=== PATIENT | female | born 1990 | race Caucasian/White ===

== ENCOUNTER 2016-11-08 23:43 | Emergency (ER) | payer BC, MEDICARE ==
[~2016-11-08] VITALS: Ht 162.6 cm; Wt 136.1 kg
[~2016-11-08 23:43] MED LIST: DIVA500T2 PO; LORA1TAB PO
[2016-11-09] MEDS ORDERED: IV NORMAL SALINE 1,000ML 1,000 ML IV SCH (01:00)
[2016-11-09] MEDS ORDERED: ONDANSETRON PF 4 MG/2 ML VIAL. IV ONE (01:00)
[2016-11-09] MEDS ORDERED: MORPHINE SULFATE 4 MG/ML DISP.SYRIN. IV/SQ PRN (01:00)
[2016-11-09 01:44] LABS: BILIRUBIN,URINE NEG (NEG); CLARITY,URINE CLEAR; COLOR,URINE YELLOW; GLUCOSE,URINE NEG (NEG); NITRITE,URINE NEG (NEG); RBC,URINE OCC /HPF (0-2); UROBILINOGEN,URINE 0.2 mg/dL (0.2 mg/dL)
[2016-11-09 01:45] LABS: BACTERIA,URINE FEW /HPF (0-FEW); SQUAMOUS EPITHELIAL CELL,UR MOD /LPF; U PREG PATIENT NEGATIVE (NEG); WBC,URINE OCC /HPF (0-4)
[2016-11-09 02:19] LABS: ALBUMIN 3.3 g/dL (3.4-5.0); ALBUMIN/GLOBULIN RATIO 0.9 (1.0-1.7); CALCIUM 8.8 mg/dL (8.5-10.1); CREATININE 0.8 mg/dL (0.6-1.0); GFR 85.4; POTASSIUM 3.5 mmol/L (3.5-5.1); TOTAL BILIRUBIN 0.2 mg/dL (0.2-1.0); TOTAL PROTEIN 7.1 g/dL (6.4-8.2)
[2016-11-09 02:28] VITALS: BP 149/91
--- NOTE | 2016-11-09 02:47 | RAD ---
Pelvic ultrasound HISTORY: Right pelvic pain, history of polycystic ovarian syndrome. TECHNIQUE: Transabdominal and transvaginal transducer with grayscale and duplex Doppler sonography were utilized. FINDINGS: Transabdominal imaging demonstrates anteverted uterus measuring 6.9 x 3.1 x 4.6 cm. Endometrium and ovaries poorly visualized transabdominal. Transvaginal imaging demonstrates left ovary measuring 1.8 x 3.1 x 1.7 cm, right ovary measuring 2.0 x 2.6 x 2.1 cm. Symmetric intact bilateral ovarian blood flow. Bowel gas shadowing limits visualization segments of the right ovary. Less than 10 subcentimeter follicles are present within each ovary. No pelvic fluid documented. Anteverted uterus measures 7.1 x 3.9 x 3.6 cm. Endometrium thickness 11 mm. IMPRESSION: Normal exam. Electronically signed by: Indra Horne MD (11/09/2016 2:44 AM) [facility]
[2016-11-09] MEDS ORDERED: IBUP600T16 PO (02:54)
[2016-11-09] MEDS ORDERED: HYDR-971 PO (02:54)
--- NOTE | 2016-11-09 02:54 | PHYS DOC ---
Past History Past Medical History: Ovarian Cyst Past Surgical History: No Surgical History Additional Smoking Information: 1 pack over a year Alcohol Use: Occasionally Drug Use: None Adult General Chief Complaint Chief Complaint: PELVIC PAIN HPI HPI Patient is a 26 year old female who presents with right-sided pelvic pain. Patient states that she has been having pain for several days, however over the past 2-3 days she has been having worsening symptoms. Patient currently rates the pain as 9.5 out of 10. Patient states that the pain is sharp and located in her right pelvis. Patient states she has history of polycystic ovarian syndrome and has had similar episodes of pain attributed to this. Patient denies any associated nausea, vomiting, fevers, vaginal bleeding, or abnormal discharge. Patient took Tylenol for her symptoms with minimal relief. Patient denies radiation of pain at this time. Review of Systems Review of Systems Constitutional: Denies fever or chills [] Eyes: Denies change in visual acuity, redness, or eye pain [] HENT: Denies nasal congestion or sore throat [] Respiratory: Denies cough or shortness of breath [] Cardiovascular: Denies chest pain or edema [] GI: Denies abdominal pain, nausea, vomiting, bloody stools or diarrhea [] : Pelvic pain [] Musculoskeletal: Denies back pain or joint pain [] Integument: Denies rash or skin lesions [] Neurologic: Denies headache, focal weakness or sensory changes [] Current Medications Current Medications Current Medications Medications (Trade) Dose Ordered Sig/Juan Start Time Stop Time Status Last Admin Dose Admin Morphine Sulfate (Morphine 4mg Syringe) 4 mg PRN Q15MIN PRN 11/09/16 01:00 11/10/16 00:59 11/09/16 02:04 4 MG Ondansetron HCl (Zofran) 4 mg 1X ONCE 11/09/16 01:00 11/09/16 01:11 DC 11/09/16 02:03 4 MG Sodium Chloride 1,000 ml @ 1,000 mls/hr Q1H 11/09/16 01:00 11/09/16 01:59 DC 11/09/16 02:34 1,000 MLS/HR Allergies Allergies Allergies Coded Allergies Type Severity Reaction Last Updated Verified Sulfa (Sulfonamide Antibiotics) Allergy Intermediate rash 01/11/14 Yes Physical Exam Physical Exam Constitutional: Alert, obese, afebrile, appears in mild to moderate discomfort. [] HENT: Normocephalic, atraumatic, bilateral external ears normal, oropharynx moist, no oral exudates, nose normal. [] Eyes: PERRLA, EOMI, conjunctiva normal, no discharge. [] Neck: Normal range of motion, no tenderness, supple, no stridor. [] Cardiovascular:Heart rate regular rhythm, no murmur [] Lungs & Thorax: Bilateral breath sounds clear to auscultation [] Abdomen: Bowel sounds normal, soft, no tenderness, no masses, no pulsatile masses. [] Skin: Warm, dry, no erythema, no rash. [] Back: No tenderness, no CVA tenderness. [] Extremities: No tenderness, no cyanosis, no clubbing, ROM intact, no edema. [] Neurologic: Alert and oriented X 3, normal motor function, normal sensory function, no focal deficits noted. [] Current Patient Data Vital Signs Vital Signs Date Time Temp Pulse Resp B/P (MAP) Pulse Ox O2 Delivery O2 Flow Rate FiO2 11/09/16 02:04 24 11/09/16 00:34 97.6 102 96 Room Air Lab Results Laboratory Tests Test 11/09/16 00:59 11/09/16 01:21 Urine Collection Type Unknown Urine Color Yellow Urine Clarity Clear Urine pH 5.5 Urine Specific [place] 1.025 Urine Protein Neg (NEG-TRACE) Urine Glucose (UA) Neg mg/dL (NEG) Urine Ketones (Stick) Trace mg/dL (NEG) Urine Blood Trace (NEG) Urine Nitrite Neg (NEG) Urine Bilirubin Neg (NEG) Urine Urobilinogen Dipstick 0.2 mg/dL (0.2 mg/dL) Urine Leukocyte Esterase Neg (NEG) Urine RBC Occ /HPF (0-2) Urine WBC Occ /HPF (0-4) Urine Squamous Epithelial Cells Mod /LPF Urine Bacteria Few /HPF (0-FEW) Urine Test Negative (NEG) Sodium Level 142 mmol/L (136-145) Potassium Level 3.5 mmol/L (3.5-5.1) Chloride Level 107 mmol/L (98-107) Carbon Dioxide Level 25 mmol/L (21-32) Anion Gap 10 (6-14) Blood Urea Nitrogen 21 mg/dL (7-20) H Creatinine 0.8 mg/dL (0.6-1.0) Estimated GFR (Cockcroft-Gault) 85.4 BUN/Creatinine Ratio 26 (6-20) H Glucose Level 93 mg/dL (70-99) Calcium Level 8.8 mg/dL (8.5-10.1) Total Bilirubin 0.2 mg/dL (0.2-1.0) Aspartate Amino Transferase (AST) 13 U/L (15-37) L Alanine Aminotransferase (ALT) 19 U/L (14-59) Alkaline Phosphatase 48 U/L (46-116) Total Protein 7.1 g/dL (6.4-8.2) Albumin 3.3 g/dL (3.4-5.0) L Albumin/Globulin Ratio 0.9 (1.0-1.7) L Lipase 218 U/L (73-393) EKG EKG Not performed [] Radiology/Procedures Radiology/Procedures [address] [id number] IMAGING REPORT Signed PATIENT: TRUDI JALLOH ACCOUNT: [id number] : 1990 LOCATION: ER AGE: 26 SEX: F EXAM STATUS: REG ER ORD. PHYSICIAN: CHINO MALDONADO MD REASON: right pelvic pain, hx of PCOS, r/o ovarian torsion PROCEDURE: US PELVIS W/TV Pelvic ultrasound HISTORY: Right pelvic pain, history of polycystic ovarian syndrome. TECHNIQUE: Transabdominal and transvaginal transducer with grayscale and duplex Doppler sonography were utilized. FINDINGS: Transabdominal imaging demonstrates anteverted uterus measuring 6.9 x 3.1 x 4.6 cm. Endometrium and ovaries poorly visualized transabdominal. Transvaginal imaging demonstrates left ovary measuring 1.8 x 3.1 x 1.7 cm, right ovary measuring 2.0 x 2.6 x 2.1 cm. Symmetric intact bilateral ovarian blood flow. Bowel gas shadowing limits visualization segments of the right ovary. Less than 10 subcentimeter follicles are present within each ovary. No pelvic fluid documented. Anteverted uterus measures 7.1 x 3.9 x 3.6 cm. Endometrium thickness 11 mm. IMPRESSION: Normal exam. Electronically signed by: Raza Horne MD (11/09/2016 2:44 AM) [facility] DICTATED AND SIGNED BY: RAZA HORNE MD DATE: 11/09/16 0242 CC: MARIELENA CHRISTIE MD; CHINO MALDONADO MD ~ [] Course & Med Decision Making Course & Med Decision Making Pertinent Labs and Imaging studies reviewed. (See chart for details) Patient was given IV morphine, Zofran, and IV fluids. The patient's lab work and imaging are unremarkable at this time. Ultrasound shows no evidence of ovarian torsion. Etiology of patient's pelvic pain is unclear but does not appear to be acutely surgical or life-threatening at this time. The patient will be treated with ibuprofen and [place] as outpatient with recommended follow- up with [facility] in 2 days for reevaluation. Advised return to the emergency department for any worsening symptoms. Patient voiced understanding and in agreement with treatment plan. Dragon Disclaimer Dragon Disclaimer This chart was dictated in whole or in part using Voice Recognition software in a busy, high-work load, and often noisy Emergency Department environment. It may contain unintended and wholly unrecognized errors or omissions. Departure Departure: Impression: Primary Impression: Pelvic pain Disposition: 01 HOME, SELF-CARE Condition: IMPROVED Referrals: MARIELENA CHRISTIE MD (PCP) Patient Instructions: Pelvic Pain, Female Additional Instructions: Follow-up with your primary doctor in the next 2-3 days for reevaluation. Return to the emergency department for any worsening symptoms. Scripts Ibuprofen (IBUPROFEN) 600 Mg Tablet 600 MG PO Q6HRS Y for PAIN, #30 TAB Prov: CHINO MALDONADO MD 11/09/16 Hydrocodone Bit/Acetaminophen (NORCO 5-325 TABLET) 1 Each Tablet 1-2 TAB PO Q4-6HRS Y for PAIN, #20 TAB Prov: CHINO MALODNADO MD 11/09/16 CHINO MALDONADO MD Nov 09, 2016 02:54
[2016-11-09 03:22] LABS: BASO # 0.1 x10^3/uL (0.0-0.2); BASO % 1 % (0-3); EOS # 0.2 x10^3/uL (0.0-0.7); EOS % 2 % (0-3); HEMOGLOBIN 12.7 g/dL (12.0-15.5); LYMPH # 2.6 x10^3/uL (1.0-4.8); LYMPH % 34 % (24-48); MEAN CORPUSCULAR HEMOGLOBIN 28 pg (25-35); MEAN CORPUSCULAR HGB CONC 33 g/dL (31-37); MEAN CORPUSCULAR VOLUME 84 fL (79-100); MONO # 0.7 x10^3/uL (0.0-1.1); MONO % 9 % (0-9); NEUT # 4.2 x10^3uL (1.8-7.7); NEUT % 54 % (31-73); PLATELET COUNT 243 x10^3/uL (140-400); RED BLOOD COUNT 4.56 x10^6/uL (3.50-5.40); RED CELL DISTRIBUTION WIDTH 13.4 % (11.5-14.5); WHITE BLOOD COUNT 7.7 x10^3/uL (4.0-11.0)
== END 2016-11-09 03:27 | disposition home or self-care (01) ==
LOC: ER 23:43
DX: R10.2 Pelvic and perineal pain (principal); F17.200 Nicotine dependence, unspecified, uncomplicated; Z88.2 Allergy status to sulfonamides
CPT/HCPCS: 36415; 76830; 76856; 80053; 81001; 81025; 83690; 85027; 96374; 96375; 99285; J2270; J2405; J7030

== ENCOUNTER 2016-11-12 01:18 | Emergency (ER) | payer BC ==
[~2016-11-12] VITALS: Ht 162.6 cm; Wt 136.1 kg
[~2016-11-12 01:18] MED LIST changes: +HYDR-971 PO; +IBUP600T16 PO
[2016-11-12] MEDS ORDERED: fentaNYL PF 100 MCG/2 ML VIAL IV PRN (01:45)
[2016-11-12] MEDS ORDERED: ONDANSETRON PF 4 MG/2 ML VIAL. IV ONE (02:00)
[2016-11-12] MEDS ORDERED: IV NORMAL SALINE 1,000ML 1,000 ML IV ONE (02:00)
[2016-11-12] MEDS ORDERED: CONTRAST GIVEN MC PRN (02:15)
[2016-11-12] MEDS ORDERED: IOHEXOL 300 MG/ML 75 ML VIAL. IV ONE (02:15)
--- NOTE | 2016-11-12 02:27 | PHYS DOC ---
Past History Past Medical History: Ovarian Cyst Past Surgical History: No Surgical History Alcohol Use: Occasionally Drug Use: None Adult General Chief Complaint Chief Complaint: ABDOMINAL PAIN HPI HPI Patient is a 26 year old female who presents with abdominal pain. The patient reports 1 month history of right lower quadrant abdominal pain which is worse over the past week. She denies fevers/chills, nausea/vomiting, diarrhea/ constipation, dysuria/hematuria, vaginal bleeding/discharge. She was seen here on 11/09 with similar symptoms, had pelvic US which was unremarkable for acute process. She does have history of PCOS. She states she has been taking pain medication at home & her symptoms are still severe. She denies history of abdominal surgeries. Review of Systems Review of Systems Constitutional: Denies fever or chills Eyes: Denies change in visual acuity HENT: Denies nasal congestion or sore throat Respiratory: Denies cough or shortness of breath Cardiovascular: Denies chest pain or edema GI: Reports abdominal pain, denies nausea, vomiting, or diarrhea : Denies dysuria or hematuria Musculoskeletal: Denies back pain or joint pain Integument: Denies rash or skin lesions Neurologic: Denies headache, focal weakness or sensory changes Current Medications Current Medications Current Medications Medications (Trade) Dose Ordered Sig/Juan Start Time Stop Time Status Last Admin Dose Admin Fentanyl Citrate (Fentanyl 2ml Vial) 50 mcg PRN Q15MIN PRN 11/12/16 01:45 11/13/16 01:44 Info (Do NOT chart on this entry -- for MONITORING) 1 each PRN DAILY PRN 11/12/16 02:15 11/14/16 02:14 Iohexol (Omnipaque 300 Mg/ml) 75 ml 1X ONCE 11/12/16 02:15 11/12/16 02:16 DC Ondansetron HCl (Zofran) 4 mg 1X ONCE 11/12/16 02:00 11/12/16 02:01 DC Sodium Chloride 1,000 ml @ 1,000 mls/hr 1X ONCE 11/12/16 02:00 11/12/16 02:59 Allergies Allergies Allergies Coded Allergies Type Severity Reaction Last Updated Verified Sulfa (Sulfonamide Antibiotics) Allergy Intermediate rash 01/11/14 Yes Physical Exam Physical Exam Constitutional: morbidly obese, no acute distress, non-toxic appearance. tearful HENT: Normocephalic, atraumatic, bilateral external ears normal, oropharynx moist, nose normal. Eyes: conjunctiva normal, no discharge. Neck: supple, no stridor. Cardiovascular: RRR, no murmurs, no edema. Lungs & Thorax: LCTAB, no wheezing, no respiratory distress. Abdomen: soft, right lower quadrant tenderness with guarding, no rebound tenderness, no masses or pulsatile masses, nondistended. Skin: Warm, dry, no erythema, no rash. Back: No CVA tenderness. Extremities: No tenderness, no edema. Neurologic: Alert and oriented X 3, no focal deficits noted. Psychologic: Affect normal, judgement normal, mood normal. EKG EKG [] Radiology/Procedures Radiology/Procedures PROCEDURE: CT ABD PELV W/ IV CONTRST ONLY CT abdomen and pelvis with contrast HISTORY: Severe right abdominal pain. Right lower quadrant abdominal pain. TECHNIQUE: Helical CT imaging abdomen and pelvis with 75 mL Omnipaque 180 300 intravenous contrast. Abdomen findings: Lung bases unremarkable. Bones unremarkable. Nonspecific bilateral renal hypodense lesions based on their density largest measuring 15 mm. Pancreas, adrenal glands, gallbladder, spleen unremarkable. The GI tract demonstrates no obstruction. Appendix diameter is 8 mm there is mild groundglass density the appendix early changes of appendicitis are not excluded. No abdominal fluid or adenopathy. Pelvis findings: Uterus, ovaries, bladder, rectum and bones are unremarkable. No pelvic fluid. IMPRESSION: 1. Mild groundglass edema surrounding the appendix with has a borderline diameter of 8 mm, early changes of appendicitis are not excluded. 2. Indeterminate renal hypodense lesions, possibly cysts. Correlation with outpatient renal sonography may be of benefit to differentiate renal cysts from solid lesions. Exposure: One or more of the following individualized dose reduction techniques were utilized for this examination: 1. Automated exposure control 2. Adjustment of the mA and/or kV according to patient size 3. Use of iterative reconstruction technique Electronically signed by: Raza Horne MD (11/12/2016 4:36 AM) [facility] DICTATED AND SIGNED BY: RAZA HORNE MD DATE: 11/12/16 0430[] Course & Med Decision Making Course & Med Decision Making Pertinent Labs and Imaging studies reviewed. (See chart for details) The patient presents with abdominal pain. US performed at previous visit but pain remains severe. Gave IV fluids, zofran, pain medication. There was a delay in performing CT & obtaining radiologist's read, but ultimately patient found to have changes around the appendix. She has normal WBC, electrolytes WNL , vitals stable. Discussed with Dr. Beverly of general surgery who recommends transfer to [facility] for further evaluation, keep NPO but okay to hold off on antibiotics. Discussed with Dr. Aldana who agrees to accept for transfer & admission. Patient agrees of plan, will be transferred by EMS & is in stable condition. [] Dragon Disclaimer Dragon Disclaimer This chart was dictated in whole or in part using Voice Recognition software in a busy, high-work load, and often noisy Emergency Department environment. It may contain unintended and wholly unrecognized errors or omissions. Departure Departure: Impression: Primary Impression: Abdominal pain Additional Impression: Disease of appendix, unspecified Disposition: 05 XFER OTHER Condition: STABLE Referrals: MARIELENA CHRISTIE MD (PCP) Problem Qualifiers DONN GRANDE MD Nov 12, 2016 02:27
[2016-11-12 02:46] LABS: BASO # 0.1 x10^3/uL (0.0-0.2); BASO % 1 % (0-3); EOS # 0.2 x10^3/uL (0.0-0.7); EOS % 2 % (0-3); HEMATOCRIT 39.3 % (36.0-47.0); HEMOGLOBIN 13.1 g/dL (12.0-15.5); LYMPH # 2.5 x10^3/uL (1.0-4.8); LYMPH % 32 % (24-48); MEAN CORPUSCULAR HEMOGLOBIN 28 pg (25-35); MEAN CORPUSCULAR HGB CONC 33 g/dL (31-37); MEAN CORPUSCULAR VOLUME 84 fL (79-100); MONO # 0.6 x10^3/uL (0.0-1.1); MONO % 8 % (0-9); NEUT # 4.4 x10^3uL (1.8-7.7); NEUT % 56 % (31-73); PLATELET COUNT 254 x10^3/uL (140-400); RED CELL DISTRIBUTION WIDTH 13.8 % (11.5-14.5); WHITE BLOOD COUNT 7.7 x10^3/uL (4.0-11.0)
[2016-11-12 02:53] LABS: ALBUMIN 3.3 g/dL (3.4-5.0); ALBUMIN/GLOBULIN RATIO 0.9 (1.0-1.7); CALCIUM 8.4 mg/dL (8.5-10.1); CREATININE 0.9 mg/dL (0.6-1.0); GFR 74.6; POTASSIUM 3.6 mmol/L (3.5-5.1); TOTAL BILIRUBIN 0.2 mg/dL (0.2-1.0); TOTAL PROTEIN 7.1 g/dL (6.4-8.2)
[2016-11-12 03:45] LABS: BACTERIA,URINE FEW /HPF (0-FEW); BILIRUBIN,URINE NEG (NEG); CLARITY,URINE CLEAR; COLOR,URINE YELLOW; GLUCOSE,URINE NEG (NEG); NITRITE,URINE NEG (NEG); RBC,URINE RARE /HPF (0-2); SQUAMOUS EPITHELIAL CELL,UR OCC /LPF; UROBILINOGEN,URINE 0.2 mg/dL (0.2 mg/dL); WBC,URINE RARE /HPF (0-4)
[2016-11-12 04:03] LABS: U PREG PATIENT NEGATIVE (NEG)
--- NOTE | 2016-11-12 04:40 | RAD ---
CT abdomen and pelvis with contrast HISTORY: Severe right abdominal pain. Right lower quadrant abdominal pain. TECHNIQUE: Helical CT imaging abdomen and pelvis with 75 mL Omnipaque 180 300 intravenous contrast. Abdomen findings: Lung bases unremarkable. Bones unremarkable. Nonspecific bilateral renal hypodense lesions based on their density largest measuring 15 mm. Pancreas, adrenal glands, gallbladder, spleen unremarkable. The GI tract demonstrates no obstruction. Appendix diameter is 8 mm there is mild groundglass density the appendix early changes of appendicitis are not excluded. No abdominal fluid or adenopathy. Pelvis findings: Uterus, ovaries, bladder, rectum and bones are unremarkable. No pelvic fluid. IMPRESSION: 1. Mild groundglass edema surrounding the appendix with has a borderline diameter of 8 mm, early changes of appendicitis are not excluded. 2. Indeterminate renal hypodense lesions, possibly cysts. Correlation with outpatient renal sonography may be of benefit to differentiate renal cysts from solid lesions. Exposure: One or more of the following individualized dose reduction techniques were utilized for this examination: 1. Automated exposure control 2. Adjustment of the mA and/or kV according to patient size 3. Use of iterative reconstruction technique Electronically signed by: Indra Horne MD (11/12/2016 4:36 AM) [facility]
[2016-11-12 05:13] VITALS: BP 149/79
== END 2016-11-12 05:58 | disposition short-term general hospital (02) ==
LOC: ER 01:18
DX: K37 Unspecified appendicitis (principal); E28.2 Polycystic ovarian syndrome; Z88.2 Allergy status to sulfonamides
CPT/HCPCS: 36415; 74177; 80053; 81001; 81025; 85027; 96361; 96374; 99285; J2405; Q9967; J7030

== ENCOUNTER 2017-04-14 10:59 | Emergency (ER) | payer BC, OTHER ==
[~2017-04-14] VITALS: Ht 162.6 cm; Wt 154.2 kg
--- NOTE | 2017-04-14 11:46 | PHYS DOC ---
Past History Past Medical History: Seizure Past Surgical History: Appendectomy Alcohol Use: None Drug Use: None Adult General Chief Complaint Chief Complaint: NAUSEA/VOMITING/DIARRHEA HPI HPI 26-year-old male patient complaining of constant nausea for the last 3 days without vomiting, diarrhea, abdominal pain, urinary symptoms, fever and chills. She states that her LMP was December 31 and she had negative urine test but her blood test was positive without confirmation of by her doctor. Patient states she wanted to make sure what is going on and asking for pelvic ultrasound for showing . Review of Systems Review of Systems Constitutional: Denies fever or chills [] Eyes: Denies change in visual acuity, redness, or eye pain [] HENT: Denies nasal congestion or sore throat [] Respiratory: Denies cough or shortness of breath [] Cardiovascular: No additional information not addressed in HPI [] GI: Denies abdominal pain, vomiting, bloody stools or diarrhea, reports nausea. [] : Denies dysuria or hematuria [] Musculoskeletal: Denies back pain or joint pain [] Integument: Denies rash or skin lesions [] Neurologic: Denies headache, focal weakness or sensory changes [] Endocrine: Denies polyuria or polydipsia [] All other systems were reviewed and found to be within normal limits, except as documented in this note. Allergies Allergies Allergies Coded Allergies Type Severity Reaction Last Updated Verified Sulfa (Sulfonamide Antibiotics) Allergy Intermediate rash 01/11/14 Yes Physical Exam Physical Exam Constitutional: Well developed, well nourished, no acute distress, non-toxic appearance, morbidly obese. [] HENT: Normocephalic, atraumatic, bilateral external ears normal, oropharynx moist, no oral exudates, nose normal. [] Eyes: PERRLA, EOMI, conjunctiva normal, no discharge. [] Neck: Normal range of motion, no tenderness, supple, no stridor. [] Cardiovascular:Heart rate regular rhythm, no murmur [] Lungs & Thorax: Bilateral breath sounds clear to auscultation [] Abdomen: Bowel sounds normal, soft, no tenderness, no masses, no pulsatile masses. [] Skin: Warm, dry, no erythema, no rash. [] Back: No tenderness, no CVA tenderness. [] Extremities: No tenderness, no cyanosis, no clubbing, ROM intact, no edema. [] Neurologic: Alert and oriented X 3, normal motor function, normal sensory function, no focal deficits noted. [] Psychologic: Affect normal, judgement normal, mood normal. [] Current Patient Data Vital Signs Vital Signs Date Time Temp Pulse Resp B/P (MAP) Pulse Ox O2 Delivery O2 Flow Rate FiO2 04/14/17 11:10 98.2 86 18 97 Room Air EKG EKG [] Radiology/Procedures Radiology/Procedures [] Course & Med Decision Making Course & Med Decision Making Pertinent Labs reviewed. (See chart for details) Evaluation of patient in ER showed 26-year-old female patient with morbid obesity presented to ER with complaining of nausea for 3 days and missing menstruation for 4 months and asking for ultrasound for confirmation possible . Patient had unremarkable physical exam and labs including hCG quantitative of less than 1. Patient informed about the test results and no need for OB ultrasound. Patient psychiatric to follow with her primary care physician or [facility] regarding amenorrhea. [] Dragon Disclaimer Dragon Disclaimer This electronic medical record was generated, in whole or in part, using a voice recognition dictation system. Departure Departure: Impression: Primary Impression: Nausea Additional Impressions: Missed period Morbid obesity with BMI of 50.0-59.9, adult Disposition: 01 HOME, SELF-CARE (At 1302) Condition: STABLE Referrals: PCP,ALTHEA (PCP) Patient Instructions: Nausea, Adult Additional Instructions: Follow-up with your [facility] for more evaluation regarding missing period Scripts Ondansetron (ZOFRAN ODT) 4 Mg Tab.rapdis 4 MG PO TID Y for NAUSEA, #12 Prov: ORBBIE GRAY MD 04/14/17 Problem Qualifiers ROBBIE GRAY MD Apr 14, 2017 11:46
[2017-04-14 12:15] LABS: BASO % 1 % (0-3); EOS # 0.2 x10^3/uL (0.0-0.7); EOS % 3 % (0-3); HEMATOCRIT 40.6 % (36.0-47.0); HEMOGLOBIN 13.7 g/dL (12.0-15.5); LYMPH # 1.7 x10^3/uL (1.0-4.8); LYMPH % 25 % (24-48); MEAN CORPUSCULAR HEMOGLOBIN 28 pg (25-35); MEAN CORPUSCULAR HGB CONC 34 g/dL (31-37); MEAN CORPUSCULAR VOLUME 84 fL (79-100); MONO # 0.4 x10^3/uL (0.0-1.1); MONO % 6 % (0-9); NEUT # 4.5 x10^3uL (1.8-7.7); NEUT % 66 % (31-73); PLATELET COUNT 258 x10^3/uL (140-400); RED BLOOD COUNT 4.84 x10^6/uL (3.50-5.40); RED CELL DISTRIBUTION WIDTH 13.4 % (11.5-14.5); WHITE BLOOD COUNT 6.8 x10^3/uL (4.0-11.0)
[2017-04-14 12:22] LABS: BACTERIA,URINE MANY /HPF (0-FEW); BILIRUBIN,URINE NEG (NEG); CLARITY,URINE CLOUDY; COLOR,URINE YELLOW; GLUCOSE,URINE NEG (NEG); NITRITE,URINE NEG (NEG); RBC,URINE RARE /HPF (0-2); SQUAMOUS EPITHELIAL CELL,UR MANY /LPF; UROBILINOGEN,URINE 0.2 mg/dL (0.2 mg/dL)
[2017-04-14 12:26] LABS: ALBUMIN 3.7 g/dL (3.4-5.0); ALBUMIN/GLOBULIN RATIO 1.1 (1.0-1.7); CREATININE 0.7 mg/dL (0.6-1.0); GFR 99.6; POTASSIUM 3.8 mmol/L (3.5-5.1); TOTAL BILIRUBIN 0.2 mg/dL (0.2-1.0)
[2017-04-14] MEDS ORDERED: ONDA4TAB10 PO (13:04)
[2017-04-14 13:14] VITALS: BP 158/83
== END 2017-04-14 13:18 | disposition home or self-care (01) ==
LOC: ER 10:59
DX: R11.0 Nausea (principal); N91.2 Amenorrhea, unspecified; E66.01 Morbid (severe) obesity due to excess calories; Z68.43 Body mass index [BMI] 50.0-59.9, adult; Z90.49 Acquired absence of other specified parts of digestive tract; Z88.2 Allergy status to sulfonamides
CPT/HCPCS: 36415; 80053; 81001; 83690; 84702; 85025; 87086; 99284

== ENCOUNTER 2018-07-18 07:43 | Emergency (ER) | payer OTHER ==
[~2018-07-18] VITALS: Ht 162.6 cm; Wt 165.3 kg
[~2018-07-18 07:43] MED LIST changes: +HYDR-3165 PO; -HYDR-971 PO; +LORA-254 PO; -LORA1TAB PO; +ONDA4TAB10 PO
[2018-07-18] MEDS ORDERED: ONDANSETRON PF 4 MG/2 ML VIAL. IV ONE (08:30)
[2018-07-18] MEDS ORDERED: KETOROLAC 30 MG/ML VIAL. IV ONE (08:30)
--- NOTE | 2018-07-18 08:35 | PHYS DOC ---
Past History Past Medical History: Depression, GERD, Seizure, Other Past Surgical History: Appendectomy Alcohol Use: Rarely Drug Use: None Adult General Chief Complaint Chief Complaint: FLANK PAIN HPI HPI Patient is a [27-year-old female presents with right upper quadrant/right flank pain that began this morning. She has been having nausea for the past several weeks to months. No diagnosis has been given with this nausea for weeks to months. Nothing seems to make it better or worse. No specific dysuria or hematuria. No significant relief with taking Tylenol this morning. Symptoms are moderate to severe in intensity.[] Review of Systems Review of Systems Constitutional: Denies fever or chills [] Eyes: Denies change in visual acuity, redness, or eye pain [] HENT: Denies nasal congestion or sore throat [] Respiratory: Denies cough or shortness of breath [] Cardiovascular: No additional information not addressed in HPI [] GI: See history of present illness, no diarrhea.[] : Denies dysuria or hematuria [] Musculoskeletal: Denies back pain or joint pain [] Integument: Denies rash or skin lesions [] Neurologic: Denies headache, focal weakness or sensory changes [] Endocrine: Denies polyuria or polydipsia [] All other systems were reviewed and found to be within normal limits, except as documented in this note. Current Medications Current Medications Current Medications Medications (Trade) Dose Ordered Sig/Juan Start Time Stop Time Status Last Admin Dose Admin Ketorolac Tromethamine (Toradol 30mg Vial) 30 mg 1X ONCE 07/18/18 08:30 07/18/18 08:31 UNV Ondansetron HCl (Zofran) 4 mg 1X ONCE 07/18/18 08:30 07/18/18 08:31 UNV Allergies Allergies Allergies Coded Allergies Type Severity Reaction Last Updated Verified Sulfa (Sulfonamide Antibiotics) Allergy Intermediate rash 07/18/18 Yes Physical Exam Physical Exam Constitutional: Well developed, well nourished, no acute distress, non-toxic appearance. [] HENT: Normocephalic, atraumatic, bilateral external ears normal, oropharynx moist, no oral exudates, nose normal. [] Eyes: PERRLA, EOMI, conjunctiva normal, no discharge. [] Neck: Normal range of motion, no tenderness, supple, no stridor. [] Cardiovascular:Heart rate regular rhythm, no murmur [] Lungs & Thorax: Bilateral breath sounds clear to auscultation [] Abdomen: Bowel sounds normal, soft, tenderness in the right upper quadrant, no inspiratory arrest/Martines sign, no masses, no pulsatile masses. [] Skin: Warm, dry, no erythema, no rash. [] Back: No tenderness, no CVA tenderness. [] Extremities: No tenderness, no cyanosis, no clubbing, ROM intact, no edema. [] Neurologic: Alert and oriented X 3, normal motor function, normal sensory function, no focal deficits noted. [] Psychologic: Affect normal, judgement normal, mood normal. [] Current Patient Data Vital Signs Vital Signs Date Time Temp Pulse Resp B/P (MAP) Pulse Ox O2 Delivery O2 Flow Rate FiO2 07/18/18 07:50 97.8 67 18 97 Room Air Lab Results Laboratory Tests Test 07/18/18 08:17 POC Urine HCG, Qualitative hcg negative (Negative) EKG EKG [] Radiology/Procedures Radiology/Procedures INDICATION: Right upper quadrant pain. Discussion: Ultrasound evaluation of the right upper quadrant was performed. Static images are submitted to PACS comparison is made to CT of the abdomen, earlier same day Discussion: Pancreas is poorly visualized. Aorta is poorly visualized. Liver is partially visualized. The liver is diffusely echogenic suggesting hepatic steatosis. Liver is mildly enlarged measuring 19 cm longitudinally. Portal vein is grossly patent. Common duct is nondilated at 4 mm. The gallbladder demonstrates no evidence of wall thickening, stones, or sludge. The right kidney is normal in size measuring 12.0 cm in length. Simple appearing right renal cyst is seen in the midpole measuring 1.3 cm. IMPRESSION: 1.Somewhat limited study with no evidence of acute intra-abdominal abnormality 2. 1.3 cm right renal cyst 3. Mild hepatomegaly. Probable hepatic steatosis CT scan of the abdomen and pelvis without contrast 07/18/2018 CLINICAL HISTORY: Right flank pain and nausea since this morning. TECHNIQUE: Unenhanced, contiguous, 3 mm axial sections were obtained through abdomen and pelvis. One or more of the following individualized dose reduction techniques were utilized for this study: 1. Automated exposure control. 2. Adjustment of the mA and/or kV according to patient size. 3. Use of iterative reconstruction technique. FINDINGS: Comparison is is dated 11/12/2016. Images through the lung bases demonstrate minimal dependent subsegmental atelectasis bilaterally. The liver parenchyma has a decreased attenuation consistent with mild fatty infiltration. The spleen, pancreas, and adrenal glands are within normal limits. A 2.5 cm rounded low-attenuation lesion is seen involving the superior pole of the left kidney. This likely represents a cyst. A 1 to 2 mm nonobstructing calculus is seen involving the midpole of the left kidney. No ureteral calculus is seen. There is no evidence of obstruction of either collecting system. The abdominal aorta tapers normally. The gallbladder is well-distended. No free fluid or free air is seen within the abdomen. There is no evidence of bowel obstruction. Air and stool is seen throughout the colon. Surgical clips are seen medial to the cecum consistent with an appendectomy. No free fluid or free air is seen within the abdomen. There is no evidence of bowel obstruction. Images through the pelvis demonstrate the urinary bladder to be contracted. No free fluid is seen. Minimal S-shaped curvature of the thoracolumbar spine is noted. IMPRESSION: No acute abnormality is seen.[] Course & Med Decision Making Course & Med Decision Making Pertinent Labs and Imaging studies reviewed. (See chart for details) ED course: Patient arrived, was placed in bed, and tolerated exam well. There was some pain relief with the medications administered. She was transported to and from CT and ultrasound with any complications. After the return of the imaging and laboratory studies, these were discussed with the patient who voiced understanding. All questions were answered. Patient was discharged in improved condition. Medical decision making: There is no evidence of cholecystitis, cholangitis, urinary tract infection, pyelonephritis, kidney stone, obstruction, perforation , nor other significant intra-abdominal pathology.[] Dragon Disclaimer Dragon Disclaimer This electronic medical record was generated, in whole or in part, using a voice recognition dictation system. Departure Departure: Impression: Primary Impression: Abdominal pain Additional Impression: Nausea Disposition: 01 HOME, SELF-CARE Condition: IMPROVED Referrals: JARET MURILLO MD (PCP) Follow-up with your primary care physician in 2 days Patient Instructions: Abdominal Pain, Flank Pain, Nausea, Adult Additional Instructions: Drink plenty of fluids, frequent small sips. No fatty foods, no milk, and no pepper for the next 48 hours. For the next 48 hours eat a diet rich in carbohydrates with foods such as bananas, rice, applesauce, and toast. Follow- up with your regular doctor in 2 days. Return to the ER if worsening discomfort or any other concerns. Scripts Ondansetron Hcl (ZOFRAN) 4 Mg Tablet 1 TAB PO Q6HRS for nausea or vomiting, #20 TAB Prov: TETE TAFOYA DO 07/18/18 Meloxicam (MELOXICAM) 7.5 Mg Tablet 7.5 MG PO DAILY for PAIN, #20 TAB Prov: TETE TAFOYA DO 07/18/18 Hyoscyamine Sulfate (LEVSIN) 0.125 Mg Tablet 0.125 MG PO QID for abdominal pain/cramping, #30 TAB Prov: TETE TAFOYA DO 07/18/18 Problem Qualifiers Primary Impression: Abdominal pain Abdominal location: right upper quadrant Qualified Codes: R10.11 - Right upper quadrant pain TETE TAFOYA DO Jul 18, 2018 08:35
[2018-07-18 08:44] LABS: BILIRUBIN,URINE NEG (NEG); CLARITY,URINE HAZY; COLOR,URINE YELLOW; GLUCOSE,URINE NEG (NEG)
[2018-07-18 08:45] LABS: BACTERIA,URINE FEW /HPF (0-FEW); NITRITE,URINE NEG (NEG); RBC,URINE RARE /HPF (0-2); SQUAMOUS EPITHELIAL CELL,UR FEW /LPF; UROBILINOGEN,URINE 0.2 mg/dL (0.2 mg/dL)
[2018-07-18] MEDS ORDERED: HYOSCYAMINE 0.125 MG TAB.RAPDIS PO ONE (08:45)
[2018-07-18 08:46] LABS: HYALINE CASTS, URINE OCC /HPF; U PREG PATIENT NEGATIVE (NEG)
--- NOTE | 2018-07-18 09:11 | RAD ---
Right upper quadrant ultrasound 07/18/2018 INDICATION: Right upper quadrant pain. Discussion: Ultrasound evaluation of the right upper quadrant was performed. Static images are submitted to PACS comparison is made to CT of the abdomen, earlier same day Discussion: Pancreas is poorly visualized. Aorta is poorly visualized. Liver is partially visualized. The liver is diffusely echogenic suggesting hepatic steatosis. Liver is mildly enlarged measuring 19 cm longitudinally. Portal vein is grossly patent. Common duct is nondilated at 4 mm. The gallbladder demonstrates no evidence of wall thickening, stones, or sludge. The right kidney is normal in size measuring 12.0 cm in length. Simple appearing right renal cyst is seen in the midpole measuring 1.3 cm. IMPRESSION: 1.Somewhat limited study with no evidence of acute intra-abdominal abnormality 2. 1.3 cm right renal cyst 3. Mild hepatomegaly. Probable hepatic steatosis Electronically signed by: Derrick Carr MD (07/18/2018 9:08 AM) [id number]
--- NOTE | 2018-07-18 09:23 | RAD ---
CT scan of the abdomen and pelvis without contrast 07/18/2018 CLINICAL HISTORY: Right flank pain and nausea since this morning. TECHNIQUE: Unenhanced, contiguous, 3 mm axial sections were obtained through abdomen and pelvis. One or more of the following individualized dose reduction techniques were utilized for this study: 1. Automated exposure control. 2. Adjustment of the mA and/or kV according to patient size. 3. Use of iterative reconstruction technique. FINDINGS: Comparison is is dated 11/12/2016. Images through the lung bases demonstrate minimal dependent subsegmental atelectasis bilaterally. The liver parenchyma has a decreased attenuation consistent with mild fatty infiltration. The spleen, pancreas, and adrenal glands are within normal limits. A 2.5 cm rounded low-attenuation lesion is seen involving the superior pole of the left kidney. This likely represents a cyst. A 1 to 2 mm nonobstructing calculus is seen involving the midpole of the left kidney. No ureteral calculus is seen. There is no evidence of obstruction of either collecting system. The abdominal aorta tapers normally. The gallbladder is well-distended. No free fluid or free air is seen within the abdomen. There is no evidence of bowel obstruction. Air and stool is seen throughout the colon. Surgical clips are seen medial to the cecum consistent with an appendectomy. No free fluid or free air is seen within the abdomen. There is no evidence of bowel obstruction. Images through the pelvis demonstrate the urinary bladder to be contracted. No free fluid is seen. Minimal S-shaped curvature of the thoracolumbar spine is noted. IMPRESSION: No acute abnormality is seen. Electronically signed by: Obey Guzman MD (07/18/2018 9:20 AM) [id number]
[2018-07-18 09:24] VITALS: BP 133/78
[2018-07-18 09:31] LABS: BASO # 0.1 x10^3/uL (0.0-0.2); BASO % 1 % (0-3); EOS # 0.2 x10^3/uL (0.0-0.7); EOS % 3 % (0-3); HEMATOCRIT 41.2 % (36.0-47.0); HEMOGLOBIN 13.7 g/dL (12.0-15.5); LYMPH # 1.7 x10^3/uL (1.0-4.8); LYMPH % 29 % (24-48); MEAN CORPUSCULAR HEMOGLOBIN 28 pg (25-35); MEAN CORPUSCULAR HGB CONC 33 g/dL (31-37); MEAN CORPUSCULAR VOLUME 84 fL (79-100); MONO # 0.5 x10^3/uL (0.0-1.1); MONO % 9 % (0-9); NEUT # 3.4 x10^3uL (1.8-7.7); NEUT % 59 % (31-73); PLATELET COUNT 252 x10^3/uL (140-400); RED CELL DISTRIBUTION WIDTH 13.4 % (11.5-14.5); WHITE BLOOD COUNT 5.9 x10^3/uL (4.0-11.0)
[2018-07-18 10:15] LABS: ALBUMIN 3.4 g/dL (3.4-5.0); ALBUMIN/GLOBULIN RATIO 0.9 (1.0-1.7); CALCIUM 8.9 mg/dL (8.5-10.1); CREATININE 0.8 mg/dL (0.6-1.0); GFR 84.8; POTASSIUM 4.3 mmol/L (3.5-5.1); TOTAL BILIRUBIN 0.4 mg/dL (0.2-1.0); TOTAL PROTEIN 7.2 g/dL (6.4-8.2)
[2018-07-18] MEDS ORDERED: ONDA4TAB7 PO (10:23)
[2018-07-18] MEDS ORDERED: HYOS0.1264 PO (10:23)
[2018-07-18] MEDS ORDERED: MELO7.5T29 PO (10:23)
== END 2018-07-18 10:42 | disposition home or self-care (01) ==
LOC: ER 07:43
DX: R10.11 Right upper quadrant pain (principal); R11.0 Nausea; N28.1 Cyst of kidney, acquired; R16.0 Hepatomegaly, not elsewhere classified; F32.9 Major depressive disorder, single episode, unspecified; K21.9 Gastro-esophageal reflux disease without esophagitis; Z90.89 Acquired absence of other organs; Z88.2 Allergy status to sulfonamides
CPT/HCPCS: 36415; 74176; 76705; 80053; 81001; 81025; 83690; 85025; 96374; 96375; 99284; J1885; J2405